=== PATIENT | female | born 1965 | race Hispanic/Latino ===

== ENCOUNTER 2017-12-27 18:13 | Emergency (ER) | payer OTHER ==
[2017-12-27 19:49] LABS: BASOPHILS % (AUTO) 0.9 % (0.0-5.0); EOSINOPHILS % (AUTO) 1.3 % (0.0-8.0); HEMATOCRIT 40.8 % (36-48); MEAN CORPUSCULAR HEMOGLOBIN 28.8 pg (27.0-33.0); MEAN CORPUSCULAR HGB CONC 32.5 g/dL (32.0-36.0); MEAN CORPUSCULAR VOLUME 88.5 fL (79-99); MONOCYTES % (AUTO) 8.3 % (3.0-13.0); NEUTROPHILS % (AUTO) 58.5 % (40.0-77.0); PLATELET COUNT (AUTO) 238 K/uL (130-400); RED BLOOD CELL COUNT(AUTO) 4.61 MIL/uL (4.00-5.50); WHITE BLOOD COUNT (AUTO) 6.8 K/uL (4.8-10.8)
[2017-12-27 20:06] LABS: INR 0.95 (0.85-1.15); PARTIAL THROMBOPLASTIN TIME 27.3 SEC (26.3-35.5)
[2017-12-27 20:32] LABS: CREATININE 0.7 mg/dL (0.5-1.5); POTASSIUM 4.1 mmol/L (3.5-5.1)
[2017-12-27 20:37] LABS: ALBUMIN 3.8 g/dL (3.5-5.0); BILIRUBIN,TOTAL 0.3 mg/dL (0.2-1.0); TOTAL PROTEIN, SERUM 7.7 g/dL (6.0-8.3)
== END 2017-12-27 20:56 | disposition home or self-care (01) ==
LOC: EDH 18:13
DX: M25.562 Pain in left knee (principal); M79.605 Pain in left leg
CPT/HCPCS: 36415; 71045; 80053; 82550; 84484; 85025; 85610; 85730; 93005; 93971

== ENCOUNTER → 2018-01-07 | Outpatient (CLI) | payer OTHER | END | disposition home or self-care (01) | LOC: RAH 08:48 | PROVIDERS: ATTEND Orthopaedic Surgery | DX: S83.282A Other tear of lateral meniscus, current injury, left knee, initial encounter (principal); S83.242A Other tear of medial meniscus, current injury, left knee, initial encounter; M25.462 Effusion, left knee; X58.XXXA Exposure to other specified factors, initial encounter; Y93.89 Activity, other specified; Y92.89 Other specified places as the place of occurrence of the external cause; Y99.8 Other external cause status | CPT/HCPCS: 73721 ==

== ENCOUNTER 2018-01-21 08:38 | Day surgery (SDC) | payer OTHER ==
[2018-01-20 15:24] LABS: BASOPHILS % (AUTO) 1.1 % (0.0-5.0); EOSINOPHILS % (AUTO) 1.3 % (0.0-8.0); HEMATOCRIT 39.5 % (36-48); LYMPHOCYTES % (AUTO) 27.8 % (21.0-51.0); MEAN CORPUSCULAR HGB CONC 33.9 g/dL (32.0-36.0); MEAN CORPUSCULAR VOLUME 88.6 fL (79-99); MONOCYTES % (AUTO) 7.1 % (3.0-13.0); NEUTROPHILS % (AUTO) 62.7 % (40.0-77.0); PLATELET COUNT (AUTO) 297 K/uL (130-400); RED BLOOD CELL COUNT(AUTO) 4.46 MIL/uL (4.00-5.50); RED CELL DISTRIBUTION WIDTH 13.7 % (11.0-15.5); WHITE BLOOD COUNT (AUTO) 6.7 K/uL (4.8-10.8)
[2018-01-20 15:36] LABS: POTASSIUM 3.8 mmol/L (3.5-5.1)
[2018-01-20 15:42] LABS: CREATININE 0.7 mg/dL (0.5-1.5)
[2018-01-20 16:08] VITALS: BP 126/66
[~2018-01-21] VITALS: Ht 153.7 cm; Wt 94.8 kg
[2018-01-21] VITALS (12 sets, daily range): BP systolic 109–130; BP diastolic 60–79
[~2018-01-21 08:38] MED LIST: PHARMACY COMMUNICATION MISC SCH; TRAM-355 PO
[2018-01-21] MEDS: CEFAZOLIN SODIUM 1 GM VIAL IVP SCH ×2 (09:00→11:50)
[2018-01-21] MEDS ORDERED: LACTATED RINGERS 1000ML 1,000 ML IV ONE (09:31)
[2018-01-21] MEDS ORDERED: MIDAZOLAM HCL 1 MG/ML 2ML VIAL ONE (11:28)
[2018-01-21] MEDS ORDERED: FENTANYL CITRATE PF 50 MCG/1 ML 2ML VIAL ONE ×5 (11:28→12:28)
[2018-01-21] MEDS ORDERED: LIDOCAINE PF 2% 5ML ABBOJECT ONE (11:35)
[2018-01-21] MEDS ORDERED: ROCURONIUM 10MG/1ML SYR 10 MG/ML ML ONE (11:36)
[2018-01-21] MEDS ORDERED: PROPOFOL 10 MG/ML 20ML VIAL IV ONE ×2 (11:36→11:40)
[2018-01-21] MEDS ORDERED: ONDANSETRON HCL 4 MG/2 ML VIAL ONE (11:53)
[2018-01-21] MEDS ORDERED: EPHEDRINE SULFATE 50 MG/ML AMPULE ONE (11:58)
[2018-01-21] MEDS ORDERED: DEXAMETHASONE SOD PHOSPHATE 10MG/ML 1ML VIAL ONE (12:17)
[2018-01-21] MEDS ORDERED: KETOROLAC TROMETHAMINE 30MG/ML ONE (12:32)
[2018-01-21] MEDS ORDERED: TYL3 PO (12:36)
[2018-01-21] MEDS ORDERED: CEPH500B PO (12:36)
[2018-01-21] MEDS ORDERED: NAPR-1192 PO (12:36)
[2018-01-21] MEDS ORDERED: HYDROMORPHONE 1 MG/1 ML AMP ONE (12:49)
[2018-01-21] MEDS ORDERED: MEPERIDINE-PF 25 MG/ML SYG ONE (13:00)
== END 2018-01-21 14:16 | disposition home or self-care (01) ==
LOC: DAH 08:38
PROVIDERS: ATTEND Orthopaedic Surgery
DX: S83.282A Other tear of lateral meniscus, current injury, left knee, initial encounter (principal); Y93.39 Activity, other involving climbing, rappelling and jumping off; Y93.9 Activity, unspecified; Y92.89 Other specified places as the place of occurrence of the external cause; Y99.9 Unspecified external cause status; Z98.890 Other specified postprocedural states; Z79.899 Other long term (current) drug therapy; Z68.41 Body mass index [BMI] 40.0-44.9, adult; Z82.49 Family history of ischemic heart disease and other diseases of the circulatory system; Z83.3 Family history of diabetes mellitus; K21.9 Gastro-esophageal reflux disease without esophagitis; M22.42 Chondromalacia patellae, left knee
CPT/HCPCS: 29881; 36415; 80048; 84702; 85025; A4606; A4649 ×2; A4930; A6223; J0690; J1100; J1170; J1885; J2001; J2175; J2250; J2405; J2704 ×2; J3010 ×5; J3490; J7120

== ENCOUNTER → 2020-07-18 | Outpatient (CLI) | payer OTHER ==
[~2020-07-18] MED LIST changes: +CEPH500B PO; +NAPR-1192 PO; -PHARMACY COMMUNICATION MISC SCH; -TRAM-355 PO; +TYL3 PO
[2020-07-18 08:50] LABS: BASOPHILS % (AUTO) 1.1 % (0.0-5.0); HEMATOCRIT 41.8 % (36-48); LYMPHOCYTES % (AUTO) 43.3 % (21.0-51.0); MEAN CORPUSCULAR HGB CONC 32.3 g/dL (32.0-36.0); MEAN CORPUSCULAR VOLUME 92.9 fL (79-99); NEUTROPHILS % (AUTO) 43.3 % (40.0-77.0); PLATELET COUNT (AUTO) 259 K/uL (130-400); RED CELL DISTRIBUTION WIDTH 12.6 % (11.0-15.5); WHITE BLOOD COUNT (AUTO) 3.5 K/uL (4.8-10.8)
[2020-07-18 09:11] LABS: ALBUMIN 3.9 g/dL (3.5-5.0); BILIRUBIN,TOTAL 0.3 mg/dL (0.2-1.0); CREATININE 0.7 mg/dL (0.5-1.5); POTASSIUM 4.2 mmol/L (3.5-5.1); TOTAL PROTEIN, SERUM 7.5 g/dL (6.0-8.3)
== END | disposition home or self-care (01) ==
LOC: LAB 08:08
PROVIDERS: ATTEND Internal Medicine
DX: Z12.11 Encounter for screening for malignant neoplasm of colon (principal); M25.50 Pain in unspecified joint; Z00.00 Encounter for general adult medical examination without abnormal findings
CPT/HCPCS: 36415; 80053; 80061; 82270; 85025; 86038; 86215; 86235; 86431

== ENCOUNTER → 2020-07-22 | Outpatient (CLI) | payer OTHER | END | disposition home or self-care (01) | LOC: RAH 14:04 | PROVIDERS: ATTEND Internal Medicine | DX: Z12.31 Encounter for screening mammogram for malignant neoplasm of breast (principal) | CPT/HCPCS: 77067 ==

== ENCOUNTER → 2020-09-04 | Outpatient (CLI) | payer OTHER ==
[2020-09-04 09:17] LABS: ALBUMIN 3.6 g/dL (3.5-5.0); BILIRUBIN,TOTAL 0.5 mg/dL (0.2-1.0); CREATININE 0.7 mg/dL (0.5-1.5); POTASSIUM 4.9 mmol/L (3.5-5.1)
== END | disposition home or self-care (01) ==
LOC: LAB 10:00
PROVIDERS: ATTEND Internal Medicine
DX: M25.561 Pain in right knee (principal); E78.2 Mixed hyperlipidemia
CPT/HCPCS: 36415; 80053; 80061

== ENCOUNTER → 2021-07-23 | Outpatient (CLI) | payer OTHER | LOC: RAH 11:24 | PROVIDERS: ATTEND Internal Medicine | DX: Z12.31 Encounter for screening mammogram for malignant neoplasm of breast (principal) | CPT/HCPCS: 77067 ==

== ENCOUNTER 2021-08-05 12:00 | Inpatient (IN) | payer OTHER ==
[~2021-08-05] VITALS: Ht 152.4 cm; Wt 78.0 kg
[2021-08-05 10:33] LABS: BASOPHILS % (AUTO) 0.6 % (0.0-5.0); EOSINOPHILS % (AUTO) 1.2 % (0.0-8.0); HEMATOCRIT 43.5 % (36-48); LYMPHOCYTES % (AUTO) 45.2 % (21.0-51.0); MEAN CORPUSCULAR HEMOGLOBIN 29.7 pg (27.0-33.0); MEAN CORPUSCULAR HGB CONC 32.2 g/dL (32.0-36.0); MEAN CORPUSCULAR VOLUME 92.4 fL (79-99); MONOCYTES % (AUTO) 6.8 % (3.0-13.0); PLATELET COUNT (AUTO) 260 K/uL (130-400); RED BLOOD CELL COUNT(AUTO) 4.71 MIL/uL (4.00-5.50); RED CELL DISTRIBUTION WIDTH 12.6 % (11.0-15.5); WHITE BLOOD COUNT (AUTO) 4.8 K/uL (4.8-10.8)
[2021-08-05 10:42] LABS: APPEARANCE,URINE Clear (CLEAR); BILIRUBIN,URINE Negative (NEGATIVE); COLOR,URINE Yellow (YELLOW); GLUCOSE, URINE (UA) Negative (NEGATIVE); KETONES,URINE Negative (NEGATIVE); LEUKOCYTE ESTERASE ,URINE Trace (NEGATIVE); NITRATE,URINE Negative (NEGATIVE); OCCULT BLOOD,URINE Negative (NEGATIVE); PROTEIN,URINE Negative (NEGATIVE); UROBILINOGEN,URINE 0.2 mg/dL (0.2-1.0)
[2021-08-05 11:02] LABS: BACTERIA,URINE Rare /HPF (None Seen); RBC,URINE 0-1 /HPF (0-1); SQUAMOUS EPITHELIAL CELL,UR Rare /HPF (0-2); WBC,URINE 0-1 /HPF (0-1)
[2021-08-06 14:12] VITALS: BP 137/87
[2021-08-06] MEDS ORDERED: MELO-108 PO (14:35)
[2021-08-06] MEDS ORDERED: ACET325C6 PO (14:35)
[2021-08-07] VITALS (24 sets, daily range): BP systolic 115–137; BP diastolic 56–89
[2021-08-07] MEDS ORDERED: CEFAZOLIN SODIUM 1 GM VIAL IVP SCH (06:00)
[2021-08-07] MEDS ORDERED: LACTATED RINGERS 1000ML 1,000 ML IV ONE (09:18)
[2021-08-07] MEDS ORDERED: CLINDAMYCIN IVPB 900MG/50ML 50 ML IV ONE (09:23)
[2021-08-07] MEDS ORDERED: ACETAMINOPHEN 500 MG TABLET ONE (10:30)
[2021-08-07] MEDS ORDERED: KETOROLAC 15MG/ML VIAL (15MG/ML) ONE (10:30)
[2021-08-07] MEDS ORDERED: METOCLOPRAMIDE 10 MG/2 ML VIAL ONE (10:30)
[2021-08-07] MEDS ORDERED: CELECOXIB 200 MG CAP ONE (10:31)
[2021-08-07] MEDS ORDERED: LIDOCAINE PF 100MG/5ML (2%) SYRINGE 5ML ONE (10:57)
[2021-08-07] MEDS ORDERED: TRANEXAMIC ACID 1000MG/10ML ONE ×2 (10:58→14:31)
[2021-08-07] MEDS ORDERED: MIDAZOLAM HCL 1 MG/ML 2ML VIAL ONE (10:58)
[2021-08-07] MEDS ORDERED: PROPOFOL 10 MG/ML 20ML VIAL IV ONE (10:58)
[2021-08-07] MEDS ORDERED: CEFAZOLIN SODIUM 1 GM VIAL ONE (10:58)
[2021-08-07] MEDS ORDERED: ROPIVACAINE 0.5% 5MG/ML 30ML IJ ONE (11:03)
[2021-08-07] MEDS ORDERED: ROCURONIUM 10MG/1ML SYR 10 MG/ML ML ONE ×2 (11:09→11:54)
[2021-08-07] MEDS ORDERED: CLINDAMYCIN 900MG/6ML INJ IV ONE (11:10)
[2021-08-07] MEDS ORDERED: VANCOMYCIN 1G VIAL ONE (11:15)
[2021-08-07] MEDS ORDERED: DEXAMETHASONE SOD PHOSPHATE 10MG/ML 1ML VIAL ONE (11:16)
[2021-08-07] MEDS ORDERED: TRANEXAMIC ACID 1000MG/10ML IV ONE (11:40)
[2021-08-07] MEDS ORDERED: VANCOMYCIN 1G VIAL IRRIG ONE (12:10)
[2021-08-07] MEDS ORDERED: FENTANYL CITRATE PF 50 MCG/1 ML 2ML VIAL ONE (12:11)
[2021-08-07] MEDS ORDERED: OXYCODONE HCL 5 MG TAB PO PRN (13:30)
[2021-08-07] MEDS ORDERED: DiphenhydrAMINE HCL 50 MG/ML VIAL IVP PRN (13:30)
[2021-08-07] MEDS: ACETAMINOPHEN 500 MG TABLET PO SCH ×2 (13:30→20:55)
[2021-08-07] MEDS ORDERED: KCL 20 MEQ ERTAB PO PRN (13:30)
[2021-08-07] MEDS ORDERED: POTASSIUM CHLORIDE 10% ELIXIR 20 MEQ/15 ML UDCUP PO PRN (13:30)
[2021-08-07] MEDS ORDERED: CALCIUM CARB 500MG PO PRN (13:30)
[2021-08-07] MEDS ORDERED: FERROUS FUMARATE 324 MG TABLET PO PRN (13:30)
[2021-08-07] MEDS: 0.9%NACL 1000ML 1,000 ML IV SCH (13:30)
[2021-08-07] MEDS ORDERED: POTASSIUM CHLORIDE 20MEQ/100ML 100 ML IV PRN (13:30)
[2021-08-07] MEDS ORDERED: LIDOCAINE HCL-MPF 1% 2ML VIAL IV PRN (13:30)
[2021-08-07] MEDS ORDERED: ONDANSETRON 4MG INJ ONE (13:41)
[2021-08-07] MEDS ORDERED: GLYCOPYRROLATE 1 MG/5 ML SYRINGE ONE (13:53)
[2021-08-07] MEDS ORDERED: NEOSTIGMINE 5MG/5ML SYR IV ONE (13:53)
[2021-08-07] MEDS ORDERED: MEPERIDINE-PF 25 MG/ML SYG ONE ×3 (14:04→14:45)
[2021-08-07] MEDS: KETOROLAC 15MG/ML VIAL (15MG/ML) IV PRN ×2 (16:34→22:52)
[2021-08-07] MEDS: OXYCODONE HCL 5 MG TAB PO PRN ×2 (16:34→20:54)
[2021-08-07] MEDS: FAMOTIDINE 20MG TAB PO SCH (20:52)
[2021-08-07] MEDS: ASPIRIN 81 MG EC TAB PO SCH (20:52)
[2021-08-07] MEDS: CELECOXIB 200 MG CAP PO SCH (20:52)
[2021-08-07] MEDS: PREGABALIN 25 MG CAP PO SCH (20:53)
[2021-08-07] MEDS: CEFAZOLIN SODIUM 1 GM VIAL IVP SCH (21:59)
[2021-08-08 03:56] VITALS: BP 130/80
[2021-08-08 04:20] VITALS: BP 113/64
[2021-08-08] MEDS: OXYCODONE HCL 5 MG TAB PO PRN ×2 (04:52→10:37)
[2021-08-08] MEDS: ACETAMINOPHEN 500 MG TABLET PO SCH ×3 (04:52→20:46)
[2021-08-08] MEDS: CEFAZOLIN SODIUM 1 GM VIAL IVP SCH (04:53)
[2021-08-08] MEDS: 0.9%NACL 1000ML 1,000 ML IV SCH ×3 (04:56→09:14)
[2021-08-08 05:01] LABS: HEMATOCRIT 37.1 % (36-48); MEAN CORPUSCULAR HEMOGLOBIN 29.8 pg (27.0-33.0); MEAN CORPUSCULAR HGB CONC 32.9 g/dL (32.0-36.0); MEAN CORPUSCULAR VOLUME 90.5 fL (79-99); RED BLOOD CELL COUNT(AUTO) 4.1 MIL/uL (4.00-5.50); RED CELL DISTRIBUTION WIDTH 12.6 % (11.0-15.5); WHITE BLOOD COUNT (AUTO) 8.5 K/uL (4.8-10.8)
[2021-08-08 05:14] LABS: CREATININE 0.7 mg/dL (0.5-1.5); POTASSIUM 4.9 mmol/L (3.5-5.1)
[2021-08-08 08:00] VITALS: BP 116/79
[2021-08-08] MEDS: PREGABALIN 25 MG CAP PO SCH ×2 (08:59→20:45)
[2021-08-08] MEDS: ASPIRIN 81 MG EC TAB PO SCH ×2 (08:59→20:45)
[2021-08-08] MEDS: POLYETHYLENE GLYCOL 3350 17 GM POWD.PACK PO SCH (08:59)
[2021-08-08] MEDS: CELECOXIB 200 MG CAP PO SCH ×2 (08:59→20:45)
[2021-08-08] MEDS: FAMOTIDINE 20MG TAB PO SCH ×2 (09:00→20:45)
[2021-08-08] MEDS: KETOROLAC 15MG/ML VIAL (15MG/ML) IV PRN ×2 (09:00→16:06)
[2021-08-08 12:00] VITALS: BP 108/68
[2021-08-08 16:00] VITALS: BP 120/70
[2021-08-08] MEDS ORDERED: OXYCODONE HCL 5 MG TAB PO PRN (17:00)
[2021-08-08] MEDS ORDERED: NALOXONE HCL 0.4 MG/1 ML ML IVP PRN (17:30)
[2021-08-08] MEDS ORDERED: HYDROMORPHONE PCA 10 MG/50 ML 50 ML IV PRN (17:30)
[2021-08-08 20:00] VITALS: BP 117/69
[2021-08-09] VITALS: BP 94/54
[2021-08-09 04:00] VITALS: BP 115/54
[2021-08-09] MEDS: ACETAMINOPHEN 500 MG TABLET PO SCH ×3 (05:35→21:53)
[2021-08-09 08:00] VITALS: BP 115/60
[2021-08-09] MEDS: ONDANSETRON 4MG INJ IVP PRN ×2 (08:08→19:57)
[2021-08-09] MEDS: OXYCODONE HCL 5 MG TAB PO PRN ×3 (09:03→21:57)
[2021-08-09] MEDS: POLYETHYLENE GLYCOL 3350 17 GM POWD.PACK PO SCH (09:03)
[2021-08-09] MEDS: ASPIRIN 81 MG EC TAB PO SCH ×2 (09:03→20:45)
[2021-08-09] MEDS: FAMOTIDINE 20MG TAB PO SCH ×2 (09:03→20:45)
[2021-08-09] MEDS: CELECOXIB 200 MG CAP PO SCH ×2 (10:29→20:45)
[2021-08-09] MEDS: PREGABALIN 25 MG CAP PO SCH ×2 (10:29→20:08)
[2021-08-09] MEDS: KETOROLAC 15MG/ML VIAL (15MG/ML) IV PRN (11:26)
[2021-08-09 12:00] VITALS: BP 146/70
[2021-08-09 16:00] VITALS: BP 128/78
[2021-08-09 20:00] VITALS: BP 135/71
[2021-08-10] VITALS: BP 107/64
[2021-08-10 04:00] VITALS: BP 122/67
[2021-08-10] MEDS: ONDANSETRON 4MG INJ IVP PRN (05:04)
[2021-08-10] MEDS ORDERED: BISACODYL 10 MG SUPP.RECT RC ONE (05:57)
[2021-08-10] MEDS: ACETAMINOPHEN 500 MG TABLET PO SCH (05:59)
[2021-08-10] MEDS: TRAMADOL HCL 50 MG TABLET PO PRN ×3 (06:01→16:15)
[2021-08-10 08:00] VITALS: BP 125/83
[2021-08-10] MEDS: POLYETHYLENE GLYCOL 3350 17 GM POWD.PACK PO SCH (08:33)
[2021-08-10] MEDS: FAMOTIDINE 20MG TAB PO SCH (08:34)
[2021-08-10] MEDS: CELECOXIB 200 MG CAP PO SCH (08:34)
[2021-08-10] MEDS: PREGABALIN 25 MG CAP PO SCH (08:34)
[2021-08-10] MEDS: ASPIRIN 81 MG EC TAB PO SCH (08:34)
[2021-08-10] MEDS: OXYCODONE HCL 5 MG TAB PO PRN ×2 (09:02→13:09)
[2021-08-10 12:00] VITALS: BP 136/77
[2021-08-10] MEDS ORDERED: BISACODYL 10 MG SUPP.RECT RC PRN (13:30)
[2021-08-10] MEDS ORDERED: KETO10 PO (14:20)
[2021-08-10] MEDS ORDERED: HYDR-4060 PO ×2 (14:20→16:17)
[2021-08-10] MEDS ORDERED: AEC81 PO (14:20)
[2021-08-10 16:00] VITALS: BP 142/68
== END 2021-08-10 17:45 | disposition home or self-care (01) | DRG 470 ==
LOC: DAHIP 08-07 08:30 → INTOOBSV 08-07 08:30 → OBSVTOIN 08-07 08:30 → 4BH 08-07 15:29
PROVIDERS: ADMIT Orthopaedic Surgery; ATTEND Orthopaedic Surgery
PROC: 0SRD0J9 Replacement of Left Knee Joint with Synthetic Substitute, Cemented, Open Approach (ICD-10-PCS; principal; 2021-08-07 12:10)
DX: M17.12 Unilateral primary osteoarthritis, left knee (principal); R26.89 Other abnormalities of gait and mobility; G89.29 Other chronic pain; Z20.822 Contact with and (suspected) exposure to COVID-19; Z82.49 Family history of ischemic heart disease and other diseases of the circulatory system; Z83.3 Family history of diabetes mellitus
CPT/HCPCS: 36415; 80048; 81001; 85025; 85027; 87088; 87635; 87641; 97039; G0378; J0690; J1100; J1170; J1885; J2001; J2175; J2250; J2405; J2704; J2710; J2765; J2795; J3010; J3370; J3490; J7120

== ENCOUNTER → 2022-03-04 | Outpatient (CLI) | payer OTHER ==
[~2022-03-04] MED LIST changes: +ACET325C6 PO; +AEC81 PO; -CEPH500B PO; +HYDR-4060 PO; +KETO10 PO; -NAPR-1192 PO; -TYL3 PO
[2022-03-04 10:29] LABS: BASOPHILS % (AUTO) 0.5 % (0.0-5.0); HEMATOCRIT 43.2 % (36-48); LYMPHOCYTES % (AUTO) 39.3 % (21.0-51.0); MEAN CORPUSCULAR HEMOGLOBIN 29.3 pg (27.0-33.0); MEAN CORPUSCULAR HGB CONC 31.7 g/dL (32.0-36.0); MEAN CORPUSCULAR VOLUME 92.5 fL (79-99); MONOCYTES % (AUTO) 9.3 % (3.0-13.0); NEUTROPHILS % (AUTO) 48.7 % (40.0-77.0); PLATELET COUNT (AUTO) 243 K/uL (130-400); RED BLOOD CELL COUNT(AUTO) 4.67 MIL/uL (4.00-5.50); RED CELL DISTRIBUTION WIDTH 13.3 % (11.0-15.5); WHITE BLOOD COUNT (AUTO) 4.1 K/uL (4.8-10.8)
[2022-03-04 10:51] LABS: ALANINE AMINOTRANSFERASE 38 U/L (12-78); ALBUMIN 3.9 g/dL (3.5-5.0); ASPARTATE AMINOTRANSFERASE 22 U/L (10-37); CARBON DIOXIDE 30 mmol/L (21-32); CHLORIDE 105 mmol/L (101-111); CREATININE 0.7 mg/dL (0.5-1.5); CRP QUANTITATIVE < 2.00 mg/L (0.00-9.0); GLOMERULAR FILTR. RATE CALC 92 mL/min (>60); GLUCOSE,RANDOM 92 mg/dL (70-105); POTASSIUM 4.3 mmol/L (3.5-5.1); SODIUM SERUM 141 mmol/L (136-145); THYROID STIMULATING HORMONE 1.19 uIU/mL (0.36-3.74); TOTAL PROTEIN, SERUM 7.6 g/dL (6.0-8.3); UREA NITROGEN, BLOOD 11 mg/dL (7-18)
[2022-03-04 11:35] LABS: ERYTHROCYTE SEDIMENTATION RATE 10 MM/HR (0-30)
== END | disposition home or self-care (01) ==
LOC: LAB 10:01
PROVIDERS: ATTEND Internal Medicine
DX: M79.643 Pain in unspecified hand (principal); M25.50 Pain in unspecified joint; E78.2 Mixed hyperlipidemia
CPT/HCPCS: 36415; 80053; 84443; 85025; 85651; 86140; 86431

== ENCOUNTER → 2022-11-24 | Outpatient (CLI) | payer OTHER ==
[2022-11-24 08:48] LABS: BASOPHILS # (AUTO) 0.03 K/uL (0.00-0.20); BASOPHILS % (AUTO) 0.8 % (0.0-5.0); EOSINOPHILS # (AUTO) 0.06 K/uL (0.00-0.70); EOSINOPHILS % (AUTO) 1.7 % (0.0-8.0); HEMATOCRIT 42.9 % (36-48); LYMPHOCYTES # (AUTO) 1.5 K/uL (1.0-4.8); LYMPHOCYTES % (AUTO) 40.9 % (21.0-51.0); MEAN CORPUSCULAR HEMOGLOBIN 29.3 pg (27.0-33.0); MEAN CORPUSCULAR HGB CONC 31.9 g/dL (32.0-36.0); MEAN CORPUSCULAR VOLUME 91.7 fL (79-99); MONOCYTES # (AUTO) 0.4 K/uL (0.1-1.0); MONOCYTES % (AUTO) 9.8 % (3.0-13.0); NEUTROPHILS # (AUTO) 1.7 K/uL (1.8-7.7); NEUTROPHILS % (AUTO) 46.8 % (40.0-77.0); PLATELET COUNT (AUTO) 249 K/uL (130-400); RED BLOOD CELL COUNT(AUTO) 4.68 MIL/uL (4.00-5.50); RED CELL DISTRIBUTION WIDTH 13.2 % (11.0-15.5); WHITE BLOOD COUNT (AUTO) 3.6 K/uL (4.8-10.8)
[2022-11-24 09:04] LABS: CHOLESTEROL 275 mg/dL (<200); HDL CHOLESTEROL 79 mg/dL (35-85); LDL DIRECT 163 mg/dL (0-99); TRIGLYCERIDES 53 mg/dL (30-200)
== END | disposition home or self-care (01) ==
LOC: LAB 08:01
PROVIDERS: ATTEND Internal Medicine
DX: Z12.11 Encounter for screening for malignant neoplasm of colon (principal); M51.26 Other intervertebral disc displacement, lumbar region; E78.2 Mixed hyperlipidemia
CPT/HCPCS: 36415; 80061; 82270; 85025

== ENCOUNTER → 2023-01-27 | Outpatient (CLI) | payer OTHER | END | disposition home or self-care (01) | LOC: RAH 08:28 | PROVIDERS: ATTEND Internal Medicine | DX: Z12.31 Encounter for screening mammogram for malignant neoplasm of breast (principal) | CPT/HCPCS: 77067 ==

== ENCOUNTER 2023-02-08 11:46 | Emergency (ER) | payer OTHER ==
[~2023-02-08] VITALS: Ht 152.4 cm; Wt 86.2 kg
[2023-02-08 12:58] LABS: HEMATOCRIT 39.2 % (36-48); MEAN CORPUSCULAR HEMOGLOBIN 29.7 pg (27.0-33.0); MEAN CORPUSCULAR HGB CONC 32.9 g/dL (32.0-36.0); MEAN CORPUSCULAR VOLUME 90.3 fL (79-99); RED BLOOD CELL COUNT(AUTO) 4.34 MIL/uL (4.00-5.50); RED CELL DISTRIBUTION WIDTH 12.7 % (11.0-15.5); WHITE BLOOD COUNT (AUTO) 6.5 K/uL (4.8-10.8)
[2023-02-08 13:05] LABS: CREATININE 0.7 mg/dL (0.5-1.5); POTASSIUM 3.8 mmol/L (3.5-5.1)
[2023-02-08 13:15] LABS: APPEARANCE,URINE CLOUDY (CLEAR); BILIRUBIN,URINE NEGATIVE (NEGATIVE); COLOR,URINE LIGHT-YELLOW (YELLOW); GLUCOSE, URINE (UA) NEGATIVE (NEGATIVE); KETONES,URINE 10 mg/dL (NEGATIVE); LEUKOCYTE ESTERASE ,URINE 500 Leu/uL (NEGATIVE); NITRATE,URINE NEGATIVE (NEGATIVE); OCCULT BLOOD,URINE NEGATIVE (NEGATIVE); PH,URINE 5.5 (5.0-8.0); PROTEIN,URINE NEGATIVE (NEGATIVE); UROBILINOGEN,URINE 0.2 mg/dL (0.2-1.0)
[2023-02-08 13:26] LABS: ADD UA MICROSCOPIC YES
[2023-02-08 13:29] LABS: BACTERIA,URINE FEW /HPF (None Seen); MUCUS,URINE FEW LPF (None Seen); SQUAMOUS EPITHELIAL CELL,UR MANY /HPF (0-2); WBC,URINE 26-50 /HPF (0-1)
[2023-02-08] MEDS ORDERED: CEPH500B PO (14:40)
[2023-02-08] MEDS ORDERED: MECL-302 PO (14:40)
[2023-02-08] MEDS ORDERED: PROCHLORPERAZINE 10MG/2ML INJ IV ONE (15:00)
[2023-02-08] MEDS ORDERED: DiphenhydrAMINE HCL 50 MG/ML VIAL IV ONE (15:00)
[2023-02-08 15:09] VITALS: BP 144/80; PULSE 70; RESP 16; O2SAT 99
== END 2023-02-08 15:11 | disposition home or self-care (01) ==
LOC: EDH 11:46
DX: N39.0 Urinary tract infection, site not specified (principal); E87.8 Other disorders of electrolyte and fluid balance, not elsewhere classified; Z79.82 Long term (current) use of aspirin; Z79.899 Other long term (current) drug therapy; Z98.890 Other specified postprocedural states; Z88.0 Allergy status to penicillin
CPT/HCPCS: 99284; 96374; 96375; 84484; 80048; 85027; 87088; 82948; 81001; 36415; 93005; J1200; J0780

== ENCOUNTER → 2023-06-09 | Outpatient (CLI) | payer OTHER ==
[~2023-06-09] MED LIST changes: +CEPH500B PO; +MECL-160 PO
[2023-06-09 10:01] LABS: BASOPHILS # (AUTO) 0.04 K/uL (0.00-0.20); BASOPHILS % (AUTO) 0.9 % (0.0-5.0); EOSINOPHILS # (AUTO) 0.05 K/uL (0.00-0.70); EOSINOPHILS % (AUTO) 1.1 % (0.0-8.0); HEMATOCRIT 43.4 % (36-48); LYMPHOCYTES # (AUTO) 1.6 K/uL (1.0-4.8); LYMPHOCYTES % (AUTO) 35.4 % (21.0-51.0); MEAN CORPUSCULAR HGB CONC 32.5 g/dL (32.0-36.0); MEAN CORPUSCULAR VOLUME 92.3 fL (79-99); MONOCYTES # (AUTO) 0.4 K/uL (0.1-1.0); MONOCYTES % (AUTO) 8.3 % (3.0-13.0); NEUTROPHILS # (AUTO) 2.5 K/uL (1.8-7.7); NEUTROPHILS % (AUTO) 54.3 % (40.0-77.0); PLATELET COUNT (AUTO) 237 K/uL (130-400); RED CELL DISTRIBUTION WIDTH 13.3 % (11.0-15.5); WHITE BLOOD COUNT (AUTO) 4.6 K/uL (4.8-10.8)
[2023-06-09 10:21] LABS: ALBUMIN 4.1 g/dL (3.5-5.0); BILIRUBIN,TOTAL 0.6 mg/dL (0.2-1.0); CREATININE 0.7 mg/dL (0.5-1.0); TOTAL PROTEIN, SERUM 7.7 g/dL (6.0-8.3)
== END | disposition home or self-care (01) ==
LOC: LAB 08:52
PROVIDERS: ATTEND Internal Medicine
DX: Z12.11 Encounter for screening for malignant neoplasm of colon (principal); Z00.00 Encounter for general adult medical examination without abnormal findings
CPT/HCPCS: 36415; 80053; 80061; 82270; 85025

== ENCOUNTER → 2024-01-14 | Outpatient (CLI) | payer OTHER ==
[~2024-01-14] MED LIST changes: -MECL-160 PO; +MECL-302 PO
== END | disposition home or self-care (01) ==
LOC: LAB 13:13
PROVIDERS: ATTEND Obstetrics & Gynecology
DX: Z01.419 Encounter for gynecological examination (general) (routine) without abnormal findings (principal)
CPT/HCPCS: 87623; 87624; 88175; G0141

== ENCOUNTER → 2024-02-03 | Outpatient (CLI) | payer OTHER ==
--- NOTE | 2024-02-03 12:33 | HMCIMG ---
SCREENING MAMMOGRAM REASON: Annual Exam COMPARISON: 01/27/2023 TECHNIQUE: CC and MLO views of the bilateral breasts were performed.CAD was performed as well. FINDINGS: Parenchymal density: There are scattered areas of fibroglandular density. There are no focal mass lesions. There are no pathologic appearing calcifications. There is no evidence of architectural distortion or skin thickening. IMPRESSION: Normal screening mammogram The patient was entered into a reminder system with a target due date for their next mammogram. BI-RADS CATEGORY 1: NEGATIVE Recommend monthly self breast exam as well as annual clinical examination. A negative x-ray should not delay biopsy if a dominant or clinically suspicious mass is present, since 8-10% of cancers are not identified by mammography. Dense breasts particularly, may obscure an underlying neoplasm. Some of these may be detected clinically and therefore, clinical examination is an essential part of breast evaluation.
== END | disposition home or self-care (01) ==
LOC: RAH 11:02
PROVIDERS: ATTEND Obstetrics & Gynecology
DX: Z12.31 Encounter for screening mammogram for malignant neoplasm of breast (principal); R92.323 Mammographic fibroglandular density, bilateral breasts
CPT/HCPCS: 77067

== ENCOUNTER → 2024-08-04 | Outpatient (CLI) | payer OTHER ==
[2024-08-04 08:37] LABS: BASOPHILS # (AUTO) 0.02 K/uL (0.00-0.20); BASOPHILS % (AUTO) 0.5 % (0.0-5.0); EOSINOPHILS % (AUTO) 2.3 % (0.0-8.0); HEMATOCRIT 42.9 % (36-48); IMMATURE GRANULOCYTE ABSOLUTE 0.01 K/uL (0-1); LYMPHOCYTES # (AUTO) 1.7 K/uL (1.0-4.8); LYMPHOCYTES % (AUTO) 38.3 % (21.0-51.0); MEAN CORPUSCULAR HEMOGLOBIN 29.5 pg (27.0-33.0); MEAN CORPUSCULAR HGB CONC 32.6 g/dL (32.0-36.0); MEAN CORPUSCULAR VOLUME 90.5 fL (79-99); MONOCYTES # (AUTO) 0.4 K/uL (0.1-1.0); MONOCYTES % (AUTO) 8.6 % (3.0-13.0); NEUTROPHILS # (AUTO) 2.2 K/uL (1.8-7.7); NEUTROPHILS % (AUTO) 50.1 % (40.0-77.0); PLATELET COUNT (AUTO) 270 K/uL (130-400); RED BLOOD CELL COUNT(AUTO) 4.74 MIL/uL (4.00-5.50); RED CELL DISTRIBUTION WIDTH 12.9 % (11.0-15.5); WHITE BLOOD COUNT (AUTO) 4.4 K/uL (4.8-10.8)
[2024-08-04 08:50] LABS: ALBUMIN 3.7 g/dL (3.5-5.0); BILIRUBIN,TOTAL 0.5 mg/dL (0.2-1.0); CREATININE 0.6 mg/dL (0.5-1.0); POTASSIUM 4.8 mmol/L (3.5-5.1); TOTAL PROTEIN, SERUM 7.3 g/dL (6.0-8.3)
== END | disposition home or self-care (01) ==
LOC: LAB 08:03
PROVIDERS: ATTEND Internal Medicine
DX: Z13.220 Encounter for screening for lipoid disorders (principal); Z00.00 Encounter for general adult medical examination without abnormal findings
CPT/HCPCS: 36415; 80053; 80061; 85025

== ENCOUNTER → 2025-03-08 | Outpatient (CLI) | payer OTHER | END | disposition home or self-care (01) | LOC: RAH 08:59 | PROVIDERS: ATTEND Obstetrics & Gynecology | DX: Z12.31 Encounter for screening mammogram for malignant neoplasm of breast (principal) | CPT/HCPCS: 77067 ==